=== PATIENT | female | born 1990 | race Caucasian/White ===

== ENCOUNTER 2016-09-19 03:38 | Emergency (ER) | payer OTHER ==
[~2016-09-19] VITALS: Ht 165.1 cm; Wt 59.0 kg
--- NOTE | 2016-09-19 04:01 | ED CARDIAC/CP/PALPITATIONS ---
History of Present Illness General Chief Complaint: General Adult Stated Complaint: " I HAVE REALLY BAD HEART BURN" HURTS TO BREATH Source: patient Exam Limitations: no limitations Vital Signs & Intake/Output Vital Signs & Intake/Output Vital Signs Date Time Temp Pulse Resp B/P B/P Pulse O2 O2 Flow FiO2 Mean Ox Delivery Rate 09/19 0630 67 20 119/75 99 Room Air 09/19 0411 Room Air 09/19 0348 96.9 70 18 120/63 99 Room Air Allergies Coded Allergies: No Known Allergies (09/19/16) Reconcile Medications Buprenorphine HCl/Naloxone HCl (Suboxone 8 MG-2 MG Sl Film) 8 MG-2 MG FILM 1 STR SL DAILY (Reported) Triage Nurses Notes Reviewed? 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 The pain is described as a burning sensation that is positional and worse with lying. Patient states she tried milk and water without improvement. She also tried Tums without relief. The pain is a constant moderate level pain. Nothing seems to improve. Patient denies known history of heart disease or acid reflux. Past History Medical History Any Pertinent Medical History? see below for history Other Medical Hx: Prior opiate addiction Surgical History Surgical History: non-contributory Psychosocial History What is your primary language Cypriot Family History Hx Contributory? No Review of Systems Review of Systems Constitutional: Reports: no symptoms. EENTM: Reports: no symptoms. Respiratory: Reports: no symptoms. Cardiovascular: Reports: see HPI. GI: Reports: no symptoms. Genitourinary: Reports: no symptoms. Musculoskeletal: Reports: no symptoms. Skin: Reports: no symptoms. Neurological/Psychological: Reports: no symptoms. Hematologic/Endocrine: Reports: no symptoms. Immunologic/Allergic: Reports: no symptoms. All Other Systems: Reviewed and Negative Physical Exam Physical Exam Cardiovascular: see below Comments: Gen.: Well-nourished, well-developed, no acute respiratory distress. Head: Normocephalic, atraumatic. Eyes: Normal inspection bilaterally Ears: Normal inspection bilaterally Nose: Normal inspection Throat/mouth : Moist mucosa Neck: Supple, full range of motion, no goiter Heart: Regular rate and rhythm, no murmurs rubs or gallops Lungs: Clear to auscultation bilaterally with normal air entry Chest: Left chest tenderness that did not reproduce the pain of the chief complaint Back: Normal range of motion Abdomen: Soft, nontender, nondistended, normal bowel sounds Extremities: Normal range of motion grossly, equal radial pulses, no cyanosis clubbing or edema Neurologic: Cranial nerves grossly intact, speech is clear Skin: warm and dry, no dermatomal rashes Psychiatric: Calm, cooperative, no apparent delusions or hallucinations Core Measures ACS in differential dx? No Severe Sepsis Present: No Septic Shock Present: No Progress Differential Diagnosis: cardiac disease, acid reflux, musculoskeletal strain, atypical chest pain Plan of Care: Orders Procedure Date/time Status Telemetry/Statement Processor 09/20 399 Active TROPONIN LEVEL 09/20 399 Complete MAGNESIUM 09/20 399 Complete CBC WITHOUT DIFFERENTIAL 09/20 399 Complete BASIC METABOLIC PANEL 09/20 399 Complete EKG 09/20 399 Active Laboratory Tests 09/19/162: Anion Gap 12, Estimated GFR > 60, BUN/Creatinine Ratio 18.6, Glucose 94, Calcium 10.2, Magnesium 2.0, Troponin I < 0.01, CBC w Diff NO MAN DIFF REQ, RBC 4.62, MCV 88.9, MCH 29.9, RDW 13.1, MPV 7.7, Gran % 57.0, Lymphocytes % 33.1, Monocytes % 7.9, Eosinophils % 1.4, Basophils % 0.6, Absolute Granulocytes 4.7, Absolute Lymphocytes 2.7, Absolute Monocytes 0.6, Absolute Eosinophils 0.1, Absolute Basophils 0, PUBS MCHC 33.7 Diagnostic Imaging: Discussed w/RAD: Radiology Read. CXR Impression: PATIENT: GIOVANI DOYLE PRESENT AGE: 25 PATIENT ACCOUNT NO: [id number] : 90 LOCATION: [facility] ORDERING PHYSICIAN: SUDEEP ZAVALA MD SERVICE DATE: 09/19/16 EXAM TYPE: RAD - XRY-CHEST XRAY, PA AND LATERAL EXAMINATION: XR CHEST CLINICAL INFORMATION: Burning left chest pain COMPARISON: None TECHNIQUE: 2 views of the chest were obtained. FINDINGS: The lungs are clear with no focal consolidation. No evidence of pneumothorax, pulmonary edema, or pleural effusions. The cardiomediastinal silhouette is unremarkable. No acute osseous findings. IMPRESSION: No acute cardiopulmonary findings. DICTATED BY: MARISOL MEIER MD DATE/TIME DICTATED:447 APPLICATION INFRASTRUCTURE ENGINEER:BERNADETTE DATE/TIME TRANSCRIBED:09/19/16447 CONFIDENTIAL, DO NOT COPY WITHOUT APPROPRIATE AUTHORIZATION. <Electronically signed in Other Vendor System> SIGNED BY: MARISOL MEIER MD 09/19/16 0452 Initial ED EKG: NSR, rate (66), no ST T wave changes Comments: I considered the following: Pericarditis but the patient had no pericardial friction rub, no preceding viral illnesses and no EKG changes consistent with this. Acute coronary syndrome but the patient's EKG showed no acute changes, the troponin level was normal, the patient had a paucity of risk factors and the patient's clinical presentation wasn't consistent with this. Pneumothorax but the chest x-ray did not show this. Pneumonia but the chest x-ray did not show infiltrate. Pulmonary embolus but the patient had no resting tachycardia, was not hypoxic, had a paucity of risk factors and was PERC negative. Aortic aneurysm/dissection but the description of the patient's pain was inconsistent with this. The chest x-ray showed no widened mediastinum or other changes consistent with this. In addition the patient had a paucity of risk factors. Given the description that the pain is burning and its positional nature, the patient is most likely suffering from acid reflux. 09/19/2016 6:28:39 AM patient's pain is virtually resolved. She appears comfortable. Departure Departure Disposition: HOME OR SELF CARE Condition: Stable Clinical Impression Primary Impression: Atypical chest pain Referrals: PATIENT HAS NO PRIMARY CARE DR (PCP/Family) Additional Instructions: [place] diet and small meals. Avoid lying flat after meals. Ketorolac as prescribed for pain. Pepcid as prescribed for the possibility of acid reflux. Follow-up with your primary care doctor this week for reevaluation and further testing. Return if any concerns or sudden worsening. Please note that there might be incidental findings in your evaluation that are unrelated to the current emergency department visit. Please notify your primary care doctor about this emergency department visit in order to obtain and review all of the testing performed so that these incidental findings can be monitored as needed. If you had an x-ray performed, please understand that some fractures may not be seen on the initial set of x-rays. If your symptoms persist you might need a repeat set of x-rays to check for such a fracture. If you had a laceration evaluated, please understand that foreign bodies such as glass or wood may not be visible to the naked eye or on plain x-rays. If the wound becomes red, swollen, increasingly more painful or if there is any drainage from the wound, please have it reevaluated by a physician for the possibility of a retained foreign body. Thank you for choosing the [facility] Emergency [facility] for your care. It was a pleasure to serve you today. Sudeep Zavala M.D. [facility] Departure Forms: Customer Survey General Discharge Information Prescriptions: Current Visit Scripts Famotidine (Pepcid) 1 TAB PO BID #30 TAB Ketorolac Tromethamine 1 TAB PO Q6P PRN chest pain #16 TAB patient given IM Toradol in the emergency department Critical Care Note Critical Care Note Critical Care Time: non-applicable
[2016-09-19] MEDS ORDERED: SUBOXONE 8 MG-1 EACH SL (04:13)
[2016-09-19 04:38] LABS: ABSOLUTE BASOPHIL COUNT 0 /CUMM (0.0-0.2); ABSOLUTE EOSINOPHIL COUNT 0.1 /CUMM (0.0-0.7); ABSOLUTE GRANULOCYTE CT 4.7 /CUMM (1.4-6.5); ABSOLUTE LYMPH COUNT 2.7 /CUMM (1.2-3.4); ABSOLUTE MONOCYTE COUNT 0.6 /CUMM (0.10-0.60); BASOPHIL % 0.6 % (0.0-2.0); EOSINOPHIL % 1.4 % (0-5); HEMATOCRIT 41.1 % (37-47); MEAN CORPUSCULAR HGB 29.9 PG (27.0-31.0); MEAN CORPUSCULAR HGB CONC 33.7 G/DL (33.0-37.0); MEAN CORPUSCULAR VOLUME 88.9 FL (81.0-99.0); MEAN PLATELET VOLUME 7.7 FL (7.4-10.4); PLATELET COUNT 256 /CUMM (130-400); RBC DISTRIBUTION WIDTH 13.1 % (11.5-14.5); RED BLOOD CELL CT 4.62 /CUMM (4.20-5.40); WHITE BLOOD CELL COUNT 8.2 /CUMM (4.8-10.8)
--- NOTE | 2016-09-19 04:52 | RADIOLOGY REPORT ---
EXAMINATION: XR CHEST CLINICAL INFORMATION: Burning left chest pain COMPARISON: None TECHNIQUE: 2 views of the chest were obtained. FINDINGS: The lungs are clear with no focal consolidation. No evidence of pneumothorax, pulmonary edema, or pleural effusions. The cardiomediastinal silhouette is unremarkable. No acute osseous findings. IMPRESSION: No acute cardiopulmonary findings.
[2016-09-19 06:30] VITALS: BP 119/75
[2016-09-19] MEDS ORDERED: PEPCID20 M1 PO (06:30)
[2016-09-19] MEDS ORDERED: KETOROLAC TROME10 M1 PO (06:30)
== END 2016-09-19 06:50 ==
LOC: ERH 03:38
PROVIDERS: Emergency Medicine
DX: R07.89 Other chest pain (principal)
CPT/HCPCS: 93005; 93010; 96372; J1885